=== PATIENT | male | born 1965 | race Caucasian/White ===

== ENCOUNTER 2023-03-19 15:00 | Outpatient (CLI) | payer OTHER | END 2023-03-19 15:15 | disposition home or self-care (01) | LOC: LAB.N 15:00 | PROVIDERS: ATTEND Family Medicine | DX: Z53.9 Procedure and treatment not carried out, unspecified reason (principal) | CPT/HCPCS: 36415; 80053; 80061; 83721; 84153; 84443; 85025 ==

== ENCOUNTER 2023-04-30 08:18 | Outpatient (CLI) | payer OTHER | END 2023-04-30 08:19 | disposition home or self-care (01) | LOC: DI 08:18 | PROVIDERS: ATTEND Family Medicine | DX: R94.31 Abnormal electrocardiogram [ECG] [EKG] (principal); I10 Essential (primary) hypertension | CPT/HCPCS: 93306 ==